=== PATIENT | male | born 1960 | race Caucasian/White ===

== ENCOUNTER → 2017-01-25 | Outpatient (CLI) | payer BC ==
--- NOTE | 2017-01-25 15:53 | CT ---
EXAMINATION TYPE: CT abdomen pelvis w con DATE OF EXAM: 01/25/2017 3:44 PM COMPARISON: NONE INDICATION: PT STATES OF LOWER ABDOMINAL PAIN. HX OF HERNIA. DLP: 1295.1 mGycm, Automated exposure control for dose reduction was used. CONTRAST: 100 mL of Omnipaque 300. Study performed with Oral Contrast TECHNIQUE: Axial images were obtained from above the diaphragm to the pubic rami in the axial plane a t 5 mm thick sections. Reconstructed images are reviewed on the computer in the coronal plane. FINDINGS: Limited CT sections are obtained the lung bases. The lung bases are clear. CT ABDOMEN: Liver: Normal Spleen: Normal Pancreas: Normal Adrenal glands: The adrenal glands are normal. Gallbladder: Normal Kidneys: No masses are evident. No hydronephrosis is present. No cysts are present. Delayed images were obtained through the kidneys, which remain unremarkable. Aorta: Normal Inferior vena cava: Normal. CT PELVIS: Loops of bowel within the abdomen and pelvis are normal. There are loops of bowel which are incom pletely distended or lack oral contrast limiting their evaluation. Appendix: Normal as visualized. Urinary bladder: Normal. Genitourinary structures: Prostate appears normal Osseous structures: There is a small sclerotic area in the posterior lateral right ischial ramus coul d be a bone island. Small bone islands likely within the proximal anterior right femoral neck. Couple of small bone islands may be within the femoral heads. L4-L5 degenerative disc changes and vacuum di sc phenomenon are present. IMPRESSIONS: 1. No acute abdominal process.
== END ==
LOC: RADCTMAIN 13:50
PROVIDERS: ATTEND Internal Medicine
DX: R10.9 Unspecified abdominal pain (principal)
CPT/HCPCS: 74177; Q9967

== ENCOUNTER → 2017-03-18 | Outpatient (CLI) | payer BC ==
--- NOTE | 2017-03-18 16:51 | US ---
EXAMINATION TYPE: US scrotum with doppler. TECHNIQUE: Sonographic images of the scrotum were obtained. Color Doppler and spectral waveform estephania sis of the testicular arteries and veins. DATE OF EXAM: 03/18/2017 3:13 PM COMPARISON: NONE CLINICAL HISTORY: 56-year-old male N50.82 SCROTUM PAIN. Right testicle pain since December. No injury . History of inguinal hernia with mesh x 2014 FINDINGS: TESTICLES: Right Testicle: 4.6 x 2.6 x 3.3 cm Left Testicle: 4.3 x 3.0 x 2.9 cm Both testicles show normal homogeneous echotexture and symmetric vascularity. There is satisfactory a rterial and venous flow on both sides. EPIDIDYMIS HEAD: Right Epididymis: 2.5 x 1.2 x 1.2 cm with a moderate to large sized 1.8 cm epididymal head cyst. Left Epididymis: 1.1 x 0.8 x 0.8 cm with a tiny 4 mm epididymal head cyst. Just adjacent, there is a 4 mm soft tissue nodule suggesting a epididymal or testicular appendix. Moderate bilateral hydroceles. No varicocele. IMPRESSION: 1. No sonographic evidence for testicular torsion or epididymoorchitis. 2. Incidental prominent 1.8 cm epididymal head cyst on the right. 3. Moderate bilateral hydroceles.
== END | disposition home or self-care (01) ==
LOC: RADUSWWP 14:40
PROVIDERS: ATTEND Internal Medicine
DX: N50.3 Cyst of epididymis (principal); N43.3 Hydrocele, unspecified
CPT/HCPCS: 76870; 93975

== ENCOUNTER → 2018-10-18 | Outpatient (CLI) | payer BC ==
[2018-10-18 09:13] LABS: HCT 43.2 % (39.0-53.0); HGB 14.9 gm/dL (13.0-17.5); MCH 30.9 pg (25.0-35.0); MCHC 34.4 g/dL (31.0-37.0); MCV 89.7 fL (80.0-100.0); Platelet Count 152 k/uL (150-450); RBC 4.81 m/uL (4.30-5.90); RDW 13.4 % (11.5-15.5); WBC 5.4 k/uL (3.8-10.6)
[2018-10-18 09:16] LABS: Appearance,Urine Clear (Clear); Bilirubin,Urine Negative (Negative); Blood,Urine Negative (Negative); Color,Urine Yellow; Glucose,Urine (UA) Negative (Negative); Ketones,Urine Negative (Negative); Leukocyte Esterase,Urine Negative (Negative); Nitrite,Urine Negative (Negative); PH, Urine 6.5 (5.0-8.0); Protein,Urine Negative (Negative); Specific Gravity,Urine 1.014 (1.001-1.035); Urobilinogen,Urine <2.0 mg/dL (<2.0)
[2018-10-18 09:18] LABS: INR 1.1 (<1.2); Partial Thromboplastin Time 23.6 sec (22.0-30.0); Prothrombin Time 10.3 sec (9.0-12.0)
[2018-10-18 09:32] LABS: Potassium 4.6 mmol/L (3.5-5.1)
[2018-10-18 09:33] LABS: Albumin 3.8 g/dL (3.5-5.0); Calcium 9.5 mg/dL (8.4-10.2); Total Bilirubin 0.6 mg/dL (0.2-1.3); Total Protein 6.8 g/dL (6.3-8.2)
== END | disposition home or self-care (01) ==
LOC: LABPAT 08:13
PROVIDERS: ATTEND Orthopaedic Surgery Sports Medicine
DX: Z01.812 Encounter for preprocedural laboratory examination (principal)
CPT/HCPCS: 80053; 81003; 85027; 85610; 85730; 87070

== ENCOUNTER 2018-11-03 10:15 | Inpatient (IN) | payer BC ==
[2018-10-27 12:01] VITALS: BMI 35.1
[~2018-11-03 10:15] MED LIST: ACETAMINOPHEN TAB 500 MG TAB PO ONE; HYDROmorphone 0.5 MG/0.5 ML SYRINGE IVP PRN; MELOXICAM 7.5 MG TAB PO ONE; MORPHINE SULFATE 2 MG/ML SYRINGE IV PRN; ONDANSETRON 4 MG/2 ML VIAL IVP ONE; ROPIVACAINE 246.25 MG, EPINEPHrine 0.5 MG, KETOROLAC 30 MG, cloNIDine HCL/PF 80 MCG, WA... MISCELLANE ONE; TRANEXAMIC ACID 1,000 MG in SODIUM CHLORIDE 0.9% 50 ML IVPB ONE; ceFAZolin IN SWFI 2 GM/20 ML SYRINGE IVP ONE
[2018-11-03] MEDS ORDERED: LACTATED RINGERS 1,000 ML IV ONE ×2 (10:49→14:35)
[2018-11-03] MEDS ORDERED: LIDOCAINE 1% 20 ML VIAL (10MG/ML) FOR IV START INTRADERMA ONE (10:50)
[2018-11-03] MEDS ORDERED: DEXAMETHASONE SOD PHOS (MDV) 100 MG/10 ML VIAL IVP ONE (10:50)
[2018-11-03] MEDS ORDERED: ACETAMINOPHEN TAB 325 MG TAB PO PRN (13:35)
[2018-11-03] MEDS ORDERED: BISACODYL 10 MG SUPP RECTAL PRN (13:35)
[2018-11-03] MEDS ORDERED: ONDANSETRON 4 MG/2 ML VIAL IVP PRN (13:35)
[2018-11-03] MEDS ORDERED: HYDROmorphone 1 MG/ML 1 ML SYRINGE IVP PRN ×3 (13:35)
[2018-11-03] MEDS ORDERED: hydrOXYzine PAMOATE 25 MG CAP PO PRN (13:35)
[2018-11-03] MEDS ORDERED: TEMAZEPAM 15 MG CAP PO PRN (13:35)
[2018-11-03] MEDS ORDERED: HYDROcodone/APAP 5-325MG 1 EACH TAB PO PRN (13:35)
[2018-11-03] MEDS ORDERED: DIAZEPAM 5 MG TAB PO PRN (13:35)
[2018-11-03] MEDS ORDERED: NA PHOS,M-B/NA PHOS,DI-BA 133 ML ENEMA RECTAL PRN (13:35)
[2018-11-03] MEDS ORDERED: HYDROcodone/APAP 10-325MG 1 EACH TAB PO PRN (13:35)
[2018-11-03] MEDS ORDERED: NALOXONE 0.4 MG/ML 1 ML VIAL IV PRN ×2 (13:35→17:06)
[2018-11-03] MEDS ORDERED: MAGNESIUM HYDROXIDE 2,400 MG/10 ML CUP PO PRN (13:35)
[2018-11-03] MEDS ORDERED: traMADol 50 MG TAB PO PRN (13:35)
[2018-11-03] MEDS ORDERED: HYDROcodone/APAP 7.5-325MG 1 EACH TAB PO PRN (13:35)
[2018-11-03] MEDS ORDERED: ceFAZolin 3,000 MG in SODIUM CHLORIDE 0.9% IRRIGATIO 3,000 ML IRRIGATION ONE (13:58)
--- NOTE | 2018-11-03 16:45 | XR ---
Left knee HISTORY: Postop 2 views of the left knee Patient is status post left knee arthroplasty. There is anatomic alignment. Lucency in the soft tissu es is compatible with postop state. IMPRESSION: Orthopedic follow-up.
[2018-11-03] MEDS ORDERED: METOCLOPRAMIDE 5 MG/ML 2 ML VIAL IVP PRN (17:06)
[2018-11-03] MEDS ORDERED: diphenhydrAMINE 50 MG/ML 1 ML VIAL IVP PRN (17:06)
[2018-11-03] MEDS ORDERED: NALBUPHINE 10 MG/ML VIAL (10ML MDV) IV PRN (17:06)
[2018-11-03] MEDS: LACTATED RINGERS 1,000 ML IV SCH ×2 (19:27→21:22)
--- NOTE | 2018-11-03 19:47 | OP ---
OPERATIVE REPORT DATE OF PROCEDURE: 11/03/2018 SURGEON: Darrel Draper MD BOOKIE: Reynaldo Alston PA-C PREOPERATIVE DIAGNOSIS: Left knee osteoarthrosis. POSTOPERATIVE DIAGNOSIS: Left knee osteoarthrosis. OPERATION: Left total knee arthroplasty. ANESTHESIA: Spinal with sedation. ESTIMATED BLOOD LOSS: 100 mL. TOURNIQUET TIME: 60 minutes at 250 mmHg. COMPLICATIONS: None apparent. DRAINS: None. DISPOSITION: Post-Anesthesia Care Unit. INDICATIONS: Juwan is a very pleasant 58-year-old male with longstanding history of left knee pain. History and physical examination are consistent with advanced left knee osteoarthrosis. This was post-traumatic, as he did have a previous traumatic injury to his knee approximately around 1989. He did undergo previous surgery for that. He has been through significant non-operative management to this point. Further treatment options were discussed and he has decided to go forward with a left total knee arthroplasty. The risks of the procedure were discussed with him in detail. These risks include but are not limited to risk of infection, nerve damage, bleeding, pain and risk of deep vein thrombosis which could lead to fatal pulmonary embolism. There is also a risk of loosening of the implant which could require revision operation. The patient understands these risks. All of his questions were answered to his satisfaction. Appropriate informed consent was obtained. DESCRIPTION OF THE PROCEDURE: The patient was identified in the preoperative holding area. Surgical site was marked by both the patient and myself. He was given 2 grams of Ancef IV for prophylactic purposes. He was then transported to the operative suite. He was placed supine on the operating room table. Spinal anesthetic was then administered and dosed per the anesthesia department without apparent complication. Examination under anesthesia was then performed. The patient was 2-3 degrees shy of full extension. He had 100 degrees of flexion in the medial collateral ligament and lateral collateral ligament, and posterior cruciate ligaments were stable. Tourniquet was then placed high on the left upper thigh, well padded in preparation for surgery. The patient's left lower extremity was then prepped and draped in the usual sterile fashion. Standard surgical pause was then undertaken to ensure that we were operating on the correct site and that appropriate preoperative antibiotics had been given. All staff in the room were in agreement and we proceeded. His previous incision was marked with a surgical pen. This was a medial parapatellar incision. The leg was then exsanguinated with an Esmarch dressing. The knee was then flexed and the tourniquet was inflated to 250 mmHg. The total tourniquet time for the procedure was 60 minutes. Incision was then made with a 10 blade scalpel. Dissection was carried down sharply to the overlying fascia. Great care was taken to minimize the skin flaps. The knee was then exposed using a standard medial parapatellar approach. A small cuff of quadriceps tendon was then left for suturing. He was in fairly neutral alignment preoperatively. A standard medial release was then made. The superficial medial collateral ligament was dissected off of the bone around to the posterior aspect of the proximal tibia. The medial meniscus was then excised as well. The lateral meniscus was also released anteriorly. The leg was then externally rotated. The patella was everted and the knee was flexed. The retractors were then placed to protect the collateral ligaments. I then proceeded to remove the infrapatellar fat pad. This was excised sharply tangentially with the fibers of the patellar tendon. I then proceeded to remove peripheral osteophytes. This was done with a rongeur. I then proceed with the distal femoral resection. He did have near-full extension. A planned 9 mm resection was then done. The femoral canal was then entered in the midline of the femur approximately 10 mm anterior to the origin of the posterior cruciate ligament. The fran was then advanced down the center of the femur and placed intramedullary. Based on the preoperative radiographs, the angle between the anatomic and mechanical axis of the femur was approximately 4-5 degrees. The valgus angle of the distal femoral cutting guide was then set at 4 degrees for the left knee. The distal femoral cutting guide was then advanced over the intramedullary fran. This was seated firmly against the femur. I then, as mentioned, planned to take 9 mm off the distal femur. The cutting block was then secured onto the femur with pins. The jig was then removed and the distal femoral cut was made through the slot of the block. The pins were then removed and the distal femoral cutting block was removed. The accuracy of the distal femoral cuts was checked with 2 flat bars. I then proceeded with femoral sizing. The posterior referencing sizing guide was held firmly against the resected distal surface of the femur. Posterior condyles were resting on the posterior plane of the guide. The sizing stylus was then placed on the anterior femur. The size was measured as a size 11. I then assessed for femoral rotation. The plan was for 3 degrees of external rotation. Three degrees of external rotation was placed onto the jig. These holes were then marked. I then confirmed the rotation by 3 separate methods. This done using the epicondylar axis as well as Whitesides line and posterior referencing. It was deemed that the external rotation was proper. I then went forward with placing the femoral cutting block. This was placed over the previously placed pin holes. The Jose A wing was then placed onto the anterior slots to ensure that we would not notch the anterior femur with the anterior femoral cut. I then proceeded with the anterior femoral cut. This was flush with the anterior cortex of the femur. The posterior cuts were then made followed by the anterior chamfer cut and then the posterior chamfer cut. The cutting block was then removed. Throughout the resection, the collateral ligaments were protected with retractors. I then placed a trial size 11 femur. It fit very nice medial to lateral and fit flush with the distal end of the femur. The drill holes were then made. I then proceeded with the tibial cut. I planned for a cruciate-retaining knee. The guide was placed and set for varus, valgus and for slope. The height was set for an approximate 2 mm resection from the lateral tibial plateau, which was the lower side. I was happy with the alignment and the amount of resection. The cutting block was then pinned to the proximal tibia. The alignment fran was removed and the proximal tibia was resected with a reciprocating saw. Again this was done with retractors protecting the collateral ligaments as well as the posterior cruciate ligament. I then proceeded to evaluate the flexion and extension gaps. A 10 mm block was then placed. The flexion and extension gaps were equal. I then proceeded with resection of the posterior osteophytes. There were very minimal posterior osteophytes. This was done using a curved osteotome. This resected the posterior osteophytes, and posterior capsule stripping was also done off the posterior aspect of the femur. The osteophytes were then removed. I then proceeded with resection of the patella. The thickness of the patella was measured using the caliper. The thickness was 25 mm. The thickness of the anticipated patellar dome was taken into account. Resection was then performed and confirmed to be equal in 4 quadrants using a caliper. Approximately 14 mm of bone remained after the resection. A 35 x 8.5 standard patellar trial was then placed. The holes were drilled and the trial was then placed. I then proceeded with sizing the tibial plate. A size G tibial plate fit very nicely. I then placed the trial femur and the tibial tray and the patellar button. A 10 mm trial tibial insert was also placed. The components fit very nicely. He had full extension and flexion. The extension and flexion gaps were equal and stable to both varus and valgus stress. The patella tracked appropriately. The tibial tray rotation was marked with a Bovie. This was externally rotated properly. I then proceeded with tibial preparation. I first drilled the femoral holes and removed the femoral component. The tibial tray was then set for proper external rotation as well as mediolateral placement onto the tibia. It was then pinned into place. I then proceeded with punching the keel. I then decided to proceed with cementing of all of our components. The knee was thoroughly irrigated with sterile saline solution via pulse lavage. The lateral geniculate artery was identified and cauterized. All blood was removed from the bone of the tibia, femur and patella with pulse lavage. I then proceeded with cementing. Two packs of antibiotic bone cement were prepared on the back table by the histologic technician. I then proceeded with cementing the tibia first. The cement was impacted into the keel as well as deeply seated into the bone. A second coat of cement was then placed. The tibia was then impacted into place. Excess cement was removed with Jessica's and Joker's. I then proceeded with cementing of the femoral component. The femoral component was also cemented using standard technique. Excess cement was removed. A 10 mm trial insert was placed into the knee. It was brought into full extension with a constant axial load placed until the cement had hardened. The patellar component was then cemented. This was held firmly with a compressive device until the cement had dried. When the cement had dried, the knee was taken out of extension. All excess cement was removed from around the prosthesis. I then trialed the knee with a 10 mm insert. The flexion and extension gaps were appropriate. The knee was stable. It came into full extension. I decided to go forward with a 10 mm cross-linked cruciate-retaining tibial insert. Polyethylene was then placed onto the tibial tray and locked into place. The knee was reduced. The knee was again further irrigated with sterile saline solution with antibiotic added. The tourniquet was then deflated. The total tourniquet time for the procedure was 60 minutes at 250 mmHg. Final components were a Elle Persona size 11 cruciate-retaining femoral component, a size G tibial tray, a 10 mm medial-congruent cruciate-retaining polyethylene insert and a 35 x 8.5 mm patella. I then proceeded with closure. Again the knee was thoroughly irrigated. The quadriceps tendon and the medial retinaculum were reapproximated with #2 Ethibond suture. The extensor mechanism was then closed with a running #2 Quill suture. Subcutaneous tissues were closed with 2-0 Vicryl interrupted suture. The skin was closed with a running 3-0 Quill suture. Dermabond was applied to the incision. A sterile compressive dressing was then applied. All sponge and needle counts were deemed correct prior to closure. The patient tolerated the procedure without apparent complication. He was transferred to the recovery room in stable condition. MMMOEL / WENDYN: [id number] /
[2018-11-03] MEDS ORDERED: SENNOSIDES-DOCUSATE SODIUM 1 EACH TAB PO SCH (21:00)
[2018-11-03] MEDS: ASPIRIN 325 MG TAB PO SCH (21:21)
[2018-11-03] MEDS: MORPHINE SULFATE 2 MG/ML SYRINGE IVP PRN (21:21)
[2018-11-03] MEDS: ceFAZolin IN SWFI 2 GM/20 ML SYRINGE IVP SCH (22:07)
[2018-11-04] MEDS: LACTATED RINGERS 1,000 ML IV SCH ×2 (00:26→04:05)
[2018-11-04] MEDS: MORPHINE SULFATE 2 MG/ML SYRINGE IVP PRN ×2 (01:22→05:11)
[2018-11-04] MEDS: ceFAZolin IN SWFI 2 GM/20 ML SYRINGE IVP SCH (05:12)
[2018-11-04 07:32] VITALS: PULSE 83; RESP 16; TEMP 98.4
[2018-11-04] MEDS: ASPIRIN 325 MG TAB PO SCH (08:05)
[2018-11-04] MEDS: HYDROcodone/APAP 5-325MG 1 EACH TAB PO PRN ×2 (08:05→12:39)
[2018-11-04] MEDS ORDERED: CARVEDILOL 3.125 MG TAB PO SCH (08:30)
[2018-11-04 08:43] LABS: Basophils % (A) 0 %; Eosinophils % (A) 0 %; HCT 36.6 % (39.0-53.0); HGB 12.5 gm/dL (13.0-17.5); Lymphocytes # (A) 1.6 k/uL (1.0-4.8); Lymphocytes % (A) 14 %; MCH 30.5 pg (25.0-35.0); MCV 89.7 fL (80.0-100.0); Mean Platelet Volume 7.5; Monocytes # (A) 0.7 k/uL (0-1.0); Monocytes % (A) 7 %; Neutrophils # (A) 8.9 k/uL (1.3-7.7); Neutrophils % (A) 78 %; Platelet Count 187 k/uL (150-450); RBC 4.08 m/uL (4.30-5.90); RDW 13.4 % (11.5-15.5); WBC 11.4 k/uL (3.8-10.6)
[2018-11-04] MEDS ORDERED: PANTOPRAZOLE 40 MG TABLET PO SCH (09:00)
[2018-11-04] MEDS ORDERED: LISINOPRIL 5 MG TAB PO SCH (09:00)
[2018-11-04] MEDS ORDERED: LEVOTHYROXINE 25 MCG TAB PO SCH (09:00)
[2018-11-04 09:14] LABS: Albumin 3.2 g/dL (3.5-5.0); Potassium 4.6 mmol/L (3.5-5.1); Total Bilirubin 0.4 mg/dL (0.2-1.3); Total Protein 5.8 g/dL (6.3-8.2)
[2018-11-04 09:39] VITALS: BP 117/72
--- NOTE | 2018-11-04 10:03 | P.PN ---
Progress Note - Text 11/04 932am 58 year old male s/p tkr by Dr Draper,vas of 4.no c/o nausea or vomitting.pt is comforatable and doing well
--- NOTE | 2018-11-04 10:32 | P.CONS ---
History of Present Illness - Reason for Consult Consult date: 11/04/18 Medical management Requesting physician: Reynaldo Alston - History of Present Illness This is a 58-year-old male patient has a known past medical history of osteoarthritis to the left knee. Patient presented on 11/03/2018 for an elective total left knee arthroplasty with Dr. Draper. Patient does have a history of previous traumatic injury to his knee in approximately 1989 at that time he underwent surgery. Additional medical history includes GERD, hypertension, hypothyroidism and gout. Surgical history includes hernia repair 3, heart catheterization, hernia repair, back surgery and cholecystectomy. Patient is a former smoker. Patient denies any significant cardiac history or cardiac arrhythmias. Patient denies any history of CHF or COPD. At this time patient is resting comfortably in bed with minimal pain to left knee. Patient denies chest pain or shortness of breath. Patient denies nausea vomiting or diarrhea. Patient denies any urinary burning or frequency. Review of Systems please refer to HPI otherwise unremarkable Past Medical History Past Medical History: GERD/Reflux, Hypertension, Thyroid Disorder Additional Past Medical History / Comment(s): gout History of Any Multi-Drug Resistant Organisms: None Reported Past Surgical History: Back Surgery, Cholecystectomy, Heart Catheterization, Hernia Repair, Orthopedic Surgery Additional Past Surgical History / Comment(s): hernia repair x3, left knee sx, radiofrequency back Past Anesthesia/Blood Transfusion Reactions: No Reported Reaction Past Psychological History: No Psychological Hx Reported Smoking Status: Former smoker Past Alcohol Use History: Occasional Additional Past Alcohol Use History / Comment(s): has smoked off and on 1ppd, quit 2016 Past Drug Use History: None Reported - Past Family History Mother Family Medical History: Cancer Additional Family Medical History / Comment(s): leukemia Father Family Medical History: Cancer Additional Family Medical History / Comment(s): prostate Medications and Allergies Home Medications Medication Instructions Recorded Confirmed Type Allopurinol [Zyloprim] 300 mg PO HS 07/20/15 11/03/18 History Omeprazole [PriLOSEC] 20 mg PO QAM 07/20/15 11/03/18 History ALPRAZolam [Xanax] 0.25 mg PO Q8HR PRN 10/28/18 11/03/18 History Carvedilol [Coreg] 3.125 mg PO BID 10/28/18 11/03/18 History HYDROcodone/APAP 7.5-325MG [[place] 1 tab PO Q6HR PRN 10/28/18 11/03/18 History 7.5-325] Levothyroxine Sodium [Synthroid] 25 mcg PO DAILY 10/28/18 11/03/18 History Lisinopril [Zestril] 5 mg PO QAM 10/28/18 11/03/18 History Aspirin 325 mg PO BID #60 tab 11/04/18 Rx Docusate [Colace] 100 mg PO BID #60 capsule 11/04/18 Rx HYDROcodone/APAP 7.5-325MG [[place] 1 - 2 each PO Q6HR PRN #56 tab 11/04/18 Rx 7.5-325] Allergies Allergy/AdvReac Type Severity Reaction Status Date / Time No Known Allergies Allergy Verified 11/03/18 17:36 Physical Exam Vitals: Vital Signs Temp Pulse Pulse Resp BP BP BP 11/04/18 09:37 117/72 11/04/18 07:27 98.4 F 83 16 104/61 11/04/18 05:17 14 11/04/18 03:50 14 11/04/18 02:55 14 11/04/18 02:18 98.1 F 78 14 108/68 11/04/18 00:30 14 11/03/18 22:00 16 11/03/18 20:06 16 11/03/18 19:15 93 117/62 11/03/18 19:00 97 125/67 11/03/18 18:45 89 116/58 11/03/18 18:30 87 16 122/64 11/03/18 18:15 84 118/63 11/03/18 18:00 86 132/62 11/03/18 17:45 82 122/59 11/03/18 17:30 85 139/66 11/03/18 17:24 11/03/18 17:20 20 11/03/18 17:17 97.6 F 89 16 125/63 11/03/18 16:57 78 16 113/61 11/03/18 16:42 84 16 112/61 11/03/18 16:27 81 18 128/66 11/03/18 16:12 97.7 F 83 18 147/63 11/03/18 10:36 97.8 F 80 18 115/70 Pulse Ox 11/04/18 09:37 11/04/18 07:27 97 11/04/18 05:17 11/04/18 03:50 11/04/18 02:55 11/04/18 02:18 96 11/04/18 00:30 11/03/18 22:00 11/03/18 20:06 11/03/18 19:15 11/03/18 19:00 11/03/18 18:45 11/03/18 18:30 11/03/18 18:15 11/03/18 18:00 11/03/18 17:45 11/03/18 17:30 11/03/18 17:24 96 11/03/18 17:20 97 11/03/18 17:17 95 11/03/18 16:57 98 11/03/18 16:42 96 11/03/18 16:27 96 11/03/18 16:12 94 L 11/03/18 10:36 97 Intake and Output 11/03/18 11/04/18 11/04/18 22:59 06:59 14:59 Intake Total 425 600 Output Total 100 750 Balance 325 -150 Intake: IV 200 Intake, IV Titration 225 600 Amount Lactated Ringers 1,000 ml 225 600 @ 75 mls/hr IV .[id number] [facility] Rx#:[id number] Output: Urine 750 Estimated Blood Loss 100 Other: Voiding Method Toilet Urinal # Voids 1 Weight 107.955 kg Head normocephalic Neck supple Lungs clear to auscultation bilaterally no wheezing or crackles Heart regular rate and rhythm S1-S2, no rub or gallop Abdomen is soft nontender nondistended positive bowel sounds no hepatosplenomegaly Extremities no edema. Left knee dressing clean dry and intact with Neuro alert and orientated to 3 Results CBC & Chem 7: 11/04/18 07:36 11/04/18 08:22 Labs: Abnormal Lab Results - Last 24 Hours (Table) 11/04/18 11/04/18 Range/Units 07:36 08:22 WBC 11.4 H (3.8-10.6) k/uL RBC 4.08 L (4.30-5.90) m/uL Hgb 12.5 L (13.0-17.5) gm/dL Hct 36.6 L (39.0-53.0) % Neutrophils # 8.9 H (1.3-7.7) k/uL Glucose 104 H (74-99) mg/dL Total Protein 5.8 L (6.3-8.2) g/dL Albumin 3.2 L (3.5-5.0) g/dL Assessment and Plan Assessment: 1. Status post total left knee arthroplasty with Dr. Draper. Patient is currently postop day 1. Patient currently on aspirin 325 twice a day for DVT prophylaxis. Pain meds per surgical team 2. History of essential hypertension. Home meds resumed with parameters 3. History of gout. Allopurinol resumed 4. History of hypothyroidism. Synthroid resumed 5. History of GERD 6. Leukocytosis. Patient was complaining of some urinary hesitancy. Will order urinary analysis to rule out UTI at this time. Patient denies any other symptoms Thank you for this consultation we will continue to follow patient closely throughout stay Patient planning to be DC'd home when cleared Time with Patient: Greater than 30 (Greater than 60% of the total time spent in counseling and coordination of care. I performed an examination of the patient and discussed their management with the Nurse Practitioner. I have reviewed the Nurse Practitioner's notes and agree with the documented findings and plan of care)
[2018-11-04] MEDS ORDERED: MULTIVITAMINS, THERA 1 EACH TAB PO SCH (12:00)
[2018-11-04 12:09] LABS: Appearance,Urine Clear (Clear); Bilirubin,Urine Negative (Negative); Blood,Urine Negative (Negative); Color,Urine Yellow; Glucose,Urine (UA) Negative (Negative); Ketones,Urine Negative (Negative); Leukocyte Esterase,Urine Negative (Negative); Nitrite,Urine Negative (Negative); PH, Urine 5.5 (5.0-8.0); Protein,Urine Negative (Negative); Specific Gravity,Urine 1.011 (1.001-1.035); Urobilinogen,Urine <2.0 mg/dL (<2.0)
--- NOTE | 2018-11-04 12:22 | P.DS ---
Providers Date of admission: 11/03/18 10:15 Expected date of discharge: 11/04/18 Attending physician: Darrel Draper Consults: 11/03/18 13:35 Consult Physician Routine Consulting Provider: Allan Sood Consult Reason/Comments: post op medical management Do you want consulting provider notified?: Yes Primary care physician: Allan Sood - Discharge Diagnosis(es) (1) Status post total left knee replacement Patient was admitted to the OR on 11/03/2018 to undergo a left total knee arthroplasty. He had failed conservative measures as an outpatient and desired to proceed with elective surgery after given informed consent. He underwent the above procedure which he tolerated well without complication. Postoperative hospital course has remained without complication. On day of discharge he is afebrile, vital signs stable, labs within acceptable ranges, tolerating by mouth meds and diet, voiding without difficulty, positive flatus, denies abdominal pain or calf pain, pain is controlled on oral pain medication and has no new complaints. Wound is benign, neurovascular status is intact, calf is soft and nontender, abdomen soft and nontender. Review of systems is negative for numbness, tingling, fever, chills, chest pain, shortness breath, nausea, vomiting, dizziness, headaches, slurred speech or other. Current Visit: Yes Status: Acute Priority: Medium Procedures: Left TKA Patient Condition at Discharge: Good Plan - Discharge Summary Discharge Rx Participant: Yes New Discharge Prescriptions: New Aspirin 325 mg PO BID #60 tab Docusate [Colace] 100 mg PO BID #60 capsule HYDROcodone/APAP 7.5-325MG [[place] 7.5-325] 1 - 2 each PO Q6HR PRN #56 tab PRN Reason: Pain No Action Allopurinol [Zyloprim] 300 mg PO HS Omeprazole [PriLOSEC] 20 mg PO QAM Levothyroxine Sodium [Synthroid] 25 mcg PO DAILY Lisinopril [Zestril] 5 mg PO QAM HYDROcodone/APAP 7.5-325MG [[place] 7.5-325] 1 tab PO Q6HR PRN PRN Reason: Pain ALPRAZolam [Xanax] 0.25 mg PO Q8HR PRN PRN Reason: Anxiety Carvedilol [Coreg] 3.125 mg PO BID Discharge Medication List Allopurinol [Zyloprim] 300 mg PO HS 07/20/15 [History] Omeprazole [PriLOSEC] 20 mg PO QAM 07/20/15 [History] ALPRAZolam [Xanax] 0.25 mg PO Q8HR PRN 10/28/18 [History] Carvedilol [Coreg] 3.125 mg PO BID 10/28/18 [History] HYDROcodone/APAP 7.5-325MG [[place] 7.5-325] 1 tab PO Q6HR PRN 10/28/18 [History] Levothyroxine Sodium [Synthroid] 25 mcg PO DAILY 10/28/18 [History] Lisinopril [Zestril] 5 mg PO QAM 10/28/18 [History] Aspirin 325 mg PO BID #60 tab 11/04/18 [Rx] Docusate [Colace] 100 mg PO BID #60 capsule 11/04/18 [Rx] HYDROcodone/APAP 7.5-325MG [[place] 7.5-325] 1 - 2 each PO Q6HR PRN #56 tab [Rx] Follow up Appointment(s)/Referral(s): Allan Sood MD [Primary Care Provider] - 11/11/18 11:00 am Darrel Draper MD [STAFF PHYSICIAN] - 11/14/18 4:00 pm Patient Instructions/Handouts: Joint Replacement Surgery (DC) Activity/Diet/Wound Care/Special Instructions: Keep wound clean and dry Take meds as directed Follow-up with Dr. Draper in office Weight bear as tolerated May shower in 3 days if no bleeding Discharge Disposition: HOME WITH HOME HEALTH SERVICES
[2018-11-04] MEDS ORDERED: ALLOPURINOL 300 MG TAB PO SCH (21:00)
== END 2018-11-04 14:11 | disposition home or self-care (01) | DRG 470 ==
LOC: 2ORMAIN 10:15 → 4SSUR 16:17
PROVIDERS: ADMIT Orthopaedic Surgery Sports Medicine; ATTEND Orthopaedic Surgery Sports Medicine
PROC: 0SRD0J9 Replacement of Left Knee Joint with Synthetic Substitute, Cemented, Open Approach (ICD-10-PCS; principal; 2018-11-03 12:00)
DX: M17.32 Unilateral post-traumatic osteoarthritis, left knee (principal); T14.90XS Injury, unspecified, sequela; D72.829 Elevated white blood cell count, unspecified; E03.9 Hypothyroidism, unspecified; I10 Essential (primary) hypertension; K21.9 Gastro-esophageal reflux disease without esophagitis; M10.9 Gout, unspecified; R39.11 Hesitancy of micturition; G89.29 Other chronic pain; M54.5 Low back pain; F41.1 Generalized anxiety disorder; E78.5 Hyperlipidemia, unspecified; G47.9 Sleep disorder, unspecified; Z79.82 Long term (current) use of aspirin; Z79.890 Hormone replacement therapy; Z79.899 Other long term (current) drug therapy; Z87.891 Personal history of nicotine dependence; Z98.1 Arthrodesis status; Z90.49 Acquired absence of other specified parts of digestive tract; Z80.6 Family history of leukemia; Z80.42 Family history of malignant neoplasm of prostate; Z82.49 Family history of ischemic heart disease and other diseases of the circulatory system
CPT/HCPCS: 80053; 81003; 85025

== ENCOUNTER 2019-07-07 07:23 | Day surgery (SDC) | payer BC ==
[2019-07-04 11:15] VITALS: BMI 35.4
[2019-07-07 08:13] VITALS: RESP 18; TEMP 97.6
[2019-07-07] MEDS: LACTATED RINGERS 1,000 ML IV SCH ×2 (08:16→08:36)
[2019-07-07] MEDS ORDERED: PROPOFOL 10 MG/ML 20 ML VIAL IV ONE (08:37)
--- NOTE | 2019-07-07 09:25 | P.PCN ---
Date of Procedure: 07/07/19 Procedure(s) Performed: BRIEF HISTORY: Patient is a 58-year-old pleasant male, scheduled for an elective colonoscopy as a part of as part of screening for colorectal neoplasia. PROCEDURE PERFORMED: Colonoscopy snare polypectomy and biopsy. PREOPERATIVE DIAGNOSIS: Screening for colon cancer. IV sedation per Anesthesia. PROCEDURE: After informed consent was obtained, the patient, was brought into the endoscopy unit. IV sedation was administered by Anesthesia under continuous monitoring. Digital rectal examination was normal. Initially the Olympus CF-160 flexible video colonoscope was then inserted in the rectum, gradually advanced into the cecum without any difficulty. Careful examination was performed as the scope was gradually being withdrawn. Ileocecal valve and the appendiceal orifice were visualized and appeared normal. Prep was excellent. Mucosa of the cecum, appeared normal. On the ileocecal valve there was a 1.5 cm broad-based polyp that was removed by snare polypectomy. Rest of the ascending colon, transverse colon, descending colon, sigmoid colon, and rectum appeared normal. The proximal rectum there were 2 polyps measuring 5 mm in size both of which were removed by snare polypectomy however one of the polyp could not be completely removed because of malfunctioning of the snare. Hence the rest of the polyp was removed by cold biopsy. Retroflexion was performed in the rectum and no lesions were seen. The patient tolerated the procedure well. IMPRESSION: 1.5 cm broad-based polyp at the ileocecal valve status post polypectomy 5 mm 2 proximal rectal polyps status post polypectomy and cold biopsy RECOMMENDATIONS: Findings of this examination were discussed with the patient as well as his family. He was advised to follow with the biopsy results. If the biopsy shows an adenoma, he can have a repeat colonoscopy in 3 years.
[2019-07-07 09:31] VITALS: BP 135/85; PULSE 71
== END 2019-07-07 09:44 | disposition home or self-care (01) ==
LOC: ORWHC2ENDO 07:23
PROVIDERS: ATTEND Internal Medicine Gastroenterology
DX: Z12.11 Encounter for screening for malignant neoplasm of colon (principal); D12.0 Benign neoplasm of cecum; K62.1 Rectal polyp; I10 Essential (primary) hypertension; E07.9 Disorder of thyroid, unspecified; K21.9 Gastro-esophageal reflux disease without esophagitis; Z79.891 Long term (current) use of opiate analgesic; Z79.890 Hormone replacement therapy; Z79.899 Other long term (current) drug therapy
CPT/HCPCS: 88305; 45380; 45385; J2704